=== PATIENT | female | born 1990 | race Caucasian/White ===

== ENCOUNTER → 2016-12-08 | Outpatient (CLI) | payer BC | LOC: BHSO 08:48 | DX: F41.1 Generalized anxiety disorder (principal) ==

== ENCOUNTER → 2017-01-18 | Outpatient (CLI) | payer BC | LOC: BHSO 08:53 | DX: F41.1 Generalized anxiety disorder (principal) ==

== ENCOUNTER → 2017-04-26 | Outpatient (CLI) | payer BC | LOC: BHSO 09:17 | DX: F41.1 Generalized anxiety disorder (principal) | CPT/HCPCS: G0463 ==

== ENCOUNTER 2022-06-13 09:19 | Outpatient (CLI) | payer BC ==
[~2022-06-13] VITALS: Ht 162.6 cm; Wt 100.5 kg
[2022-06-13] MEDS ORDERED: NUVESSA1.3% VG (09:39)
[2022-06-13] MEDS ORDERED: ASPIRIN 81M81 MG/TA2 PO (09:40)
[2022-06-13] MEDS ORDERED: PRENATAL TABLET PO (09:40)
[2022-06-13] MEDS ORDERED: [UNRECOGNIZED DRUG - OTHER] PO (09:41)
--- NOTE | 2022-06-13 10:01 | NUR ---
Pt called Dr. Blanchard regarding fall, per physician, obtain information regarding fall and doppler FHT. Pt and mother arrive ambulatory at 0920. Per pt, she was walking in wet grass and slipped falling forward and landing directly on stomach. Pt denies leaking fluid and vaginal bleeding, reports feeling movement, and denies cramping at this time. Pt states she has some bilateral abdominal "soreness" but "doesn't know if that is from ligament pain or the sono tech pushing on her abdomen yesterday". FHT easily found with doppler on lower right quad of abdomen. FHR 140s-150s. Pt tearful and reassured. Assessments completed. Pt given discharge education on Discomforts of and Early labor with instructions to call physician or return to hospital if leaking fluid, vaginal bleeding, no movement, or consistent worsening cramping. Pt verbalized understanding. Pt and mother left ambulatory at 1005.
== END 2022-06-13 10:05 | disposition home or self-care (01) ==
LOC: LDRO 09:19
DX: O36.8390 Maternal care for abnormalities of the fetal heart rate or rhythm, unspecified trimester, not applicable or unspecified (principal); O9A.219 Injury, poisoning and certain other consequences of external causes complicating pregnancy, unspecified trimester; Z3A.00 Weeks of gestation of pregnancy not specified

== ENCOUNTER → 2022-07-30 | Outpatient (CLI) | payer BC ==
[~2022-07-30] MED LIST: ASPIRIN 81M81 MG/TA2 PO; NUVESSA1.3% VG; PRENATAL TABLET PO; [UNRECOGNIZED DRUG - OTHER] PO
== END ==
LOC: COL.RAD 09:08
DX: R10.11 Right upper quadrant pain (principal)